=== PATIENT | male | born 1970 | race Caucasian/White ===

== ENCOUNTER 2018-10-31 12:30 | Emergency (ER) | payer BC ==
--- NOTE | 2018-10-31 12:47 | EDM.PDOC ---
ED HPI GENERAL MEDICAL PROBLEM - General Stated Complaint: ABD PAIN Time Seen by Provider: 10/31/18 12:43 Source of Information: Reports: Patient History Limitations: Reports: No Limitations - History of Present Illness INITIAL COMMENTS - FREE TEXT/NARRATIVE: pt c/o sever right flank/right sided abd pain , pain is dull non radiating started 2 hrs ago, denies fever, nausea, urinary with this or any other associated sx or concerns , report watery BMs this morning . pt denies Hx of similar problems or any significant morbidities. R upper abdomen radiating into R flank region Pain Score (Numeric/FACES): 10 - Related Data Allergies Allergy/AdvReac Type Severity Reaction Status Date / Time No Known Allergies Allergy Verified 10/31/18 12:40 Home Meds: Home Meds NK [No Known Home Meds] 10/31/18 [History] ED ROS GENERAL - Review of Systems Review Of Systems: See Below Constitutional: Reports: No Symptoms Respiratory: Reports: No Symptoms Cardiovascular: Reports: No Symptoms Endocrine: Reports: No Symptoms GI/Abdominal: Denies: Bloody Stool, Diarrhea, Distension, Flatus, Nausea, Vomiting : Reports: Flank Pain. Denies: Dysuria, Frequency, Hematuria, Urgency Musculoskeletal: Reports: No Symptoms Skin: Reports: No Symptoms Neurological: Reports: No Symptoms ED EXAM, GENERAL - Physical Exam Exam: See Below Exam Limited By: No Limitations General Appearance: Alert, Moderate Distress Nose: Normal Inspection Throat/Mouth: Normal Inspection Respiratory/Chest: No Respiratory Distress, Lungs Clear Cardiovascular: Normal Peripheral Pulses, Regular Rate, Rhythm GI/Abdominal: Normal Bowel Sounds, Soft, Non-Tender, No Distention, No Mass, Other (pt has right CVAT) Back Exam: Normal Inspection, CVA Tenderness (R) Extremities: Normal Inspection Course - Vital Signs Text/Narrative:: labs and CT results were explained to pt. pt is comfortable after fluids and Dilaudid . CT suggest findings related to gastroenteritis which correlate to pt presentation with his watery diarrhea today. pt is stable for discharge with supportive mng . Last Recorded V/S: Last Vital Signs Temp 36.8 C 10/31/18 13:05 Pulse 96 10/31/18 13:25 Resp 20 10/31/18 13:25 BP 146/60 H 10/31/18 13:25 Pulse Ox 100 10/31/18 13:25 - Orders/Labs/Meds Orders: Active Orders 24 hr Category Date Time Status Abdomen Pelvis wo Cont [CT] Stat Exams 10/31/18 12:55 Ordered LIPASE, SERUM Stat Lab 10/31/18 13:15 Received Sodium Chloride 0.9% [Normal Saline] 1,000 ml Med 10/31/18 12:48 Active IV .BOLUS Medication Orders Sodium Chloride (Normal Saline) 1,000 mls @ 999 drops/hr IV .BOLUS ONE Stop: 11/01/18 03:48 Last Admin: 10/31/18 13:00 Dose: 999 drops/hr Labs: Laboratory Tests 10/31/18 10/31/18 10/31/18 Range/Units 13:15 13:15 13:15 WBC 15.5 H (4.5-12.0) X10-3/uL RBC 4.70 (4.30-5.75) x10(6)uL Hgb 14.2 (13.5-17.8) g/dL Hct 42.1 (30.0-51.3) % MCV 89.6 (80-96) fL MCH 30.2 (27.7-33.6) pg MCHC 33.7 (32.2-35.4) g/dL RDW 13.9 (11.5-15.5) % Plt Count 337 (125-369) X10(3)uL Sodium 135 (135-145) mmol/L Potassium 4.2 (3.5-5.3) mmol/L Chloride 100 (100-110) mmol/L Carbon Dioxide 23 (21-32) mmol/L BUN 16 (7-18) mg/dL Creatinine 0.8 (0.70-1.30) mg/dL Est Cr Clr Drug Dosing 103.63 mL/min Estimated GFR (MDRD) > 60 (>60) BUN/Creatinine Ratio 20.0 (9-20) Glucose 144 H (80-116) mg/dL Lactic Acid (0.4-2.2) mmol/L Calcium 9.7 (8.6-10.2) mg/dL Total Bilirubin 0.5 (0.1-1.3) mg/dL AST 26 H (5-25) IU/L ALT 35 (12-36) U/L Alkaline Phosphatase 127 H (56-112) IU/L Total Protein 7.7 (6.0-8.0) g/dL Albumin 3.0 L (3.5-5.2) g/dL Globulin 4.7 g/dL Albumin/Globulin Ratio 0.6 Amylase 47 (25-115) U/L Urine Color (YELLOW) Urine Appearance (CLEAR) Urine pH (5.0-6.5) Ur Specific [place] (1.010-1.025) Urine Protein (NEGATIVE) mg/dL Urine Glucose (UA) (NORMAL) mg/dL Urine Ketones (NEGATIVE) mg/dL Urine Occult Blood (NEGATIVE) Urine Nitrite (NEGATIVE) Urine Bilirubin (NEGATIVE) Urine Urobilinogen (NEGATIVE) mg/dL Ur Leukocyte Esterase (NEGATIVE) Urine WBC (0-5) Ur Squamous Epith Cells (NS,R,O) Urine Bacteria (NS) 10/31/18 10/31/18 Range/Units 13:15 13:50 WBC (4.5-12.0) X10-3/uL RBC (4.30-5.75) x10(6)uL Hgb (13.5-17.8) g/dL Hct (30.0-51.3) % MCV (80-96) fL MCH (27.7-33.6) pg MCHC (32.2-35.4) g/dL RDW (11.5-15.5) % Plt Count (125-369) X10(3)uL Sodium (135-145) mmol/L Potassium (3.5-5.3) mmol/L Chloride (100-110) mmol/L Carbon Dioxide (21-32) mmol/L BUN (7-18) mg/dL Creatinine (0.70-1.30) mg/dL Est Cr Clr Drug Dosing mL/min Estimated GFR (MDRD) (>60) BUN/Creatinine Ratio (9-20) Glucose (80-116) mg/dL Lactic Acid 1.4 (0.4-2.2) mmol/L Calcium (8.6-10.2) mg/dL Total Bilirubin (0.1-1.3) mg/dL AST (5-25) IU/L ALT (12-36) U/L Alkaline Phosphatase (56-112) IU/L Total Protein (6.0-8.0) g/dL Albumin (3.5-5.2) g/dL Globulin g/dL Albumin/Globulin Ratio Amylase (25-115) U/L Urine Color Yellow (YELLOW) Urine Appearance Slightly cloudy (CLEAR) Urine pH 5.0 (5.0-6.5) Ur Specific [place] 1.030 H (1.010-1.025) Urine Protein 30 H (NEGATIVE) mg/dL Urine Glucose (UA) Normal (NORMAL) mg/dL Urine Ketones Negative (NEGATIVE) mg/dL Urine Occult Blood Negative (NEGATIVE) Urine Nitrite Negative (NEGATIVE) Urine Bilirubin Negative (NEGATIVE) Urine Urobilinogen 1 H (NEGATIVE) mg/dL Ur Leukocyte Esterase Negative (NEGATIVE) Urine WBC 0-5 (0-5) Ur Squamous Epith Cells Few H (NS,R,O) Urine Bacteria Few H (NS) Meds: Medications Generic Name Dose Route Start Last Admin Trade Name Freq PRN Reason Stop Dose Admin Sodium Chloride 1,000 mls @ 999 drops/hr 10/31/18 12:48 10/31/18 13:00 Normal Saline IV 11/01/18 03:48 999 drops/hr .BOLUS ONE Administration Discontinued Medications Generic Name Dose Route Start Last Admin Trade Name Freq PRN Reason Stop Dose Admin Hydromorphone HCl 1 mg 10/31/18 12:49 10/31/18 13:00 Dilaudid IVPUSH 10/31/18 12:50 1 mg ONETIME ONE Administration Hydromorphone HCl 1 mg 10/31/18 13:13 10/31/18 13:18 Dilaudid IVPUSH 10/31/18 13:14 1 mg ONETIME ONE Administration Sodium Chloride 1,000 mls @ 999 mls/hr 10/31/18 13:05 10/31/18 14:05 Normal Saline IV 10/31/18 14:05 999 mls/hr .BOLUS ONE Administration Departure - Departure Time of Disposition: 14:49 Disposition: Home, Self-Care 01 Clinical Impression: Gastroenteritis - Discharge Information - My Orders Last 24 Hours: My Active Orders 10/31/18 12:48 Sodium Chloride 0.9% [Normal Saline] 1,000 ml IV .BOLUS 10/31/18 12:55 Abdomen Pelvis wo Cont [CT] Stat 10/31/18 13:15 LIPASE, SERUM Stat - Assessment/Plan Last 24 Hours: My Active Orders 10/31/18 12:48 Sodium Chloride 0.9% [Normal Saline] 1,000 ml IV .BOLUS 10/31/18 12:55 Abdomen Pelvis wo Cont [CT] Stat 10/31/18 13:15 LIPASE, SERUM Stat
[2018-10-31] MEDS ORDERED: Sodium Chloride 0.9% 1,000 ML IV ONE ×2 (12:48→13:05)
[2018-10-31] MEDS ORDERED: HYDROmorphone 2 MG/ML SDV IVPUSH ONE ×2 (12:49→13:13)
--- NOTE | 2018-11-01 08:44 | CT ---
INDICATION: Sudden onset of severe right flank pain. CT ABDOMEN AND PELVIS WITHOUT CONTRAST: Spiral 2.5 mm axial sections were obtained through the abdomen and pelvis with sagittal and coronal reconstructions, 10/31/18 - no comparisons. Total exam DLP = 279.96 mGy-cm. The lower lung stone and pleural spaces visualized appeared fairly normal with minimal scarring at the middle lobe. The heart was normal in size. No pericardial effusion was suggested. The liver appeared normal in density. No definite focal lesions were seen. No gallstones were demonstrated. Low density lesions are noted in both adrenal glands, most likely representing adrenal adenomas, measuring a maximum of approximately 24 mm on the right and 26 mm on the left. No evidence of renal calcinosis or obstructive uropathy was identified. The spleen and the pancreas appear to be normal. No retroperitoneal masses were identified. Calcifications are noted in the abdominal aorta, iliac and femoral arteries, as well as minimally at the splenic artery. The appendix is not definitely visualized. No definite free air was seen. There are multiple fluid-filled loops of small bowel, which appear mildly distended in the mid to distal small bowel. The stomach also appears to be distended. A process such as gastroenteritis would be a consideration with this appearance. No definite mechanically obstructive process of the bowel was seen, although followup studies may be warranted for confirmation, depending upon clinical course. The prostate was mildly prominent in size with some calcifications present, measuring 33 x 40 x approximately 43 mm in AP, transverse, and craniocaudad diameters and is noted to impinge upon the floor of the urinary bladder somewhat. Urinary bladder did not appear grossly distended. No definite wall thickening was seen. Narrowing of the L4-5 disk space is noted, suggesting degenerative disk disease. There may be some disk disease also with minimal narrowing of the L5- S1 disk space. Hypertrophic changes are moderate in the lumbar spine off vertebral bodies anteriorly. No evidence of a ventral hernia was seen. No other organomegaly, mass lesions, or free fluid collections were identified in the abdomen or pelvis. IMPRESSION: 1. Distended loops of mid to distal small bowel filled with fluid, along with distention of the stomach. A process such as gastroenteritis would be a consideration - correlate clinically. An early mechanically obstructive process of the distal small bowel is difficult to entirely exclude. Gas and stool are noted in the rectum, however. No other findings to suggest an etiology for acute right blank pain could be identified - no renal calcinosis or obstructive uropathy or gallstones. 2. Degenerative changes and disk disease lumbar spine. 3. ASD. 4. Appendix not definitely visualized. 5. Prostate calcified with somewhat prominent appearance and impingement on the floor of the urinary bladder. 6. Bilateral low density lesions in the adrenal glands, likely representing adenomas. Report was called to Dr. Morrow at 1327 hours on 10/31/18. [facility]
== END 2018-10-31 15:38 | disposition home or self-care (01) ==
LOC: FB.ED 12:30
DX: K52.9 Noninfective gastroenteritis and colitis, unspecified (principal)
CPT/HCPCS: 36415; 74176; 80053; 81001; 82150; 83605; 83690; 85027; 96361; 96374; 99284; J1170; J7030